=== PATIENT | male | born 1950 | race Two or more races ===

== ENCOUNTER 2018-05-02 10:30 | Inpatient (IN) | payer OTHER ==
[2018-05-02] MEDS ORDERED: IMURAN50 MG (14:30)
[2018-05-02] MEDS ORDERED: NORVASC10 MG (14:30)
[2018-05-02] MEDS ORDERED: PREDNISONE10 MG (14:30)
[2018-05-02] MEDS ORDERED: CALCITRIOL0.25 MCG (14:31)
[2018-05-02] MEDS ORDERED: SENSIPAR60 MG (14:31)
[2018-05-02] MEDS ORDERED: ZYLOPRIM100 MG (14:31)
== END 2018-05-13 16:43 | DRG 520 ==
LOC: PED 05-12 05:16 → O/R 05-12 05:16 → RECOVERY 05-12 10:00 → PED 05-12 16:42
PROVIDERS: Orthopaedic Surgery Orthopaedic Surgery of the Spine
PROC: 00BY0ZZ Excision of Lumbar Spinal Cord, Open Approach (ICD-10-PCS; principal; 2018-05-12 10:00)
DX: M51.26 Other intervertebral disc displacement, lumbar region (principal); Q85.02 Neurofibromatosis, type 2

== ENCOUNTER 2018-05-18 17:52 | Emergency (ER) | payer OTHER ==
[~2018-05-18] VITALS: Ht 182.9 cm; Wt 77.1 kg
[~2018-05-18 17:52] MED LIST: CALCITRIOL0.25 MCG; IMURAN50 MG; NORVASC10 MG; PREDNISONE10 MG; SENSIPAR60 MG; ZYLOPRIM100 MG
[2018-05-18] MEDS ORDERED: PERCOCET 10-321 EACH (18:23)
== END 2018-05-18 22:52 | disposition home or self-care (01) ==
LOC: ER 17:52
DX: T39.1X5A Adverse effect of 4-Aminophenol derivatives, initial encounter (principal); R41.0 Disorientation, unspecified; E86.0 Dehydration; N39.0 Urinary tract infection, site not specified

== ENCOUNTER 2018-05-25 18:34 | Inpatient (IN) | payer OTHER ==
[~2018-05-25] VITALS: Ht 177.8 cm; Wt 63.5 kg
[~2018-05-25 18:34] MED LIST changes: +PERCOCET 10-321 EACH
== END 2018-06-06 17:10 | DRG 91 ==
LOC: ICU 18:34 → SURH 06-03 15:27
PROVIDERS: ADMIT Internal Medicine
PROC: B246ZZZ Ultrasonography of Right and Left Heart (ICD-10-PCS; principal; 2018-05-25)
PROC: 4A12X4Z Monitoring of Cardiac Electrical Activity, External Approach (ICD-10-PCS; 2018-05-25)
PROC: 0T9B70Z Drainage of Bladder with Drainage Device, Via Natural or Artificial Opening (ICD-10-PCS; 2018-05-25)
PROC: 05H533Z Insertion of Infusion Device into Right Subclavian Vein, Percutaneous Approach (ICD-10-PCS; 2018-05-26)
PROC: BW28ZZZ Computerized Tomography (CT Scan) of Head (ICD-10-PCS; 2018-05-26)
PROC: 3E0F7GC Introduction of Other Therapeutic Substance into Respiratory Tract, Via Natural or Artificial Opening (ICD-10-PCS; 2018-05-26)
PROC: 4A033R1 Measurement of Arterial Saturation, Peripheral, Percutaneous Approach (ICD-10-PCS; 2018-05-27)
PROC: 8E0ZXY6 Isolation (ICD-10-PCS; 2018-05-27)
PROC: B030ZZZ Magnetic Resonance Imaging (MRI) of Brain (ICD-10-PCS; 2018-06-01)
PROC: B03BZZZ Magnetic Resonance Imaging (MRI) of Spinal Cord (ICD-10-PCS; 2018-06-01)
DX: G92 Toxic encephalopathy (principal); J15.0 Pneumonia due to Klebsiella pneumoniae; J69.0 Pneumonitis due to inhalation of food and vomit; T81.41XA Infection following a procedure, superficial incisional surgical site, initial encounter; R65.10 Systemic inflammatory response syndrome (SIRS) of non-infectious origin without acute organ dysfunction; N39.0 Urinary tract infection, site not specified; Z94.0 Kidney transplant status; B37.89 Other sites of candidiasis; I25.3 Aneurysm of heart; E27.49 Other adrenocortical insufficiency; Q85.02 Neurofibromatosis, type 2; G81.01 Flaccid hemiplegia affecting right dominant side; T40.2X5A Adverse effect of other opioids, initial encounter; I71.2 Thoracic aortic aneurysm, without rupture; B96.1 Klebsiella pneumoniae [K. pneumoniae] as the cause of diseases classified elsewhere; J10.1 Influenza due to other identified influenza virus with other respiratory manifestations; E86.0 Dehydration; I11.0 Hypertensive heart disease with heart failure; T17.920A Food in respiratory tract, part unspecified causing asphyxiation, initial encounter
CPT/HCPCS: 240; 70553; 72148